=== PATIENT | female | born 1940 | race Caucasian/White ===

== ENCOUNTER 2017-06-04 12:43 | Day surgery (SDC) | payer MEDICARE, OTHER ==
[~2017-06-04] VITALS: Ht 160 cm; Wt 70.4 kg
[~2017-06-04 12:43] MED LIST: ASCO500 PO; FLAX PO; INDO25; INDO25 PO; LISHYD1012 PO; METO25ER PO; Multi-Day Vita1 EACH PO; NATURAL LUTEIN20 MG PO; TOCO400 PO; ZINC15 PO
[2017-06-04] MEDS ORDERED: ELIQUIS5 MG (13:16)
== END 2017-06-04 14:55 | disposition home or self-care (01) ==
LOC: ORSCSDS 12:43
PROVIDERS: Internal Medicine Gastroenterology
PROC: 0DBL8ZX Excision of Transverse Colon, Via Natural or Artificial Opening Endoscopic, Diagnostic (ICD-10-PCS; principal; 2017-06-04 14:15)
DX: Z12.11 Encounter for screening for malignant neoplasm of colon (principal); D12.3 Benign neoplasm of transverse colon; K64.4 Residual hemorrhoidal skin tags; Z86.010 Personal history of colon polyps; I10 Essential (primary) hypertension; E78.5 Hyperlipidemia, unspecified; I48.91 Unspecified atrial fibrillation; Z79.899 Other long term (current) drug therapy
CPT/HCPCS: 88305; J7120

== ENCOUNTER 2017-12-30 08:56 | Day surgery (SDC) | payer MEDICARE, OTHER ==
[~2017-12-30] VITALS: Ht 157.5 cm; Wt 72.6 kg
[~2017-12-30 08:56] MED LIST changes: +ELIQUIS5 MG
== END 2017-12-30 11:00 | disposition home or self-care (01) ==
LOC: ORSCSDS 08:56
PROVIDERS: Ophthalmology
PROC: 08RJ3JZ Replacement of Right Lens with Synthetic Substitute, Percutaneous Approach (ICD-10-PCS; principal; 2017-12-30 10:30)
DX: H25.11 Age-related nuclear cataract, right eye (principal); I10 Essential (primary) hypertension; E78.5 Hyperlipidemia, unspecified; Z95.0 Presence of cardiac pacemaker; I48.0 Paroxysmal atrial fibrillation; Z79.01 Long term (current) use of anticoagulants; Z79.899 Other long term (current) drug therapy
CPT/HCPCS: J2250; J3010; J3301; V2632

== ENCOUNTER → 2019-04-02 | Outpatient (CLI) | payer MEDICARE | END | disposition home or self-care (01) | LOC: LAB SHORT 11:15 → LAB 11:15 | DX: R30.0 Dysuria (principal) | CPT/HCPCS: 87077; 87086; 87186 ==

== ENCOUNTER → 2020-06-11 | Outpatient (CLI) | payer OTHER | LOC: LAB 12:06 → LAB SHORT 12:06 | DX: N39.0 Urinary tract infection, site not specified (principal) | CPT/HCPCS: 87086 ==

== ENCOUNTER 2020-11-15 10:27 | Emergency (ER) | payer OTHER ==
[~2020-11-15] VITALS: Ht 160 cm; Wt 63.0 kg
[2020-11-15] MEDS ORDERED: CEPH500 PO (10:51)
== END 2020-11-15 10:59 | disposition home or self-care (01) ==
LOC: ER 10:27
DX: L08.9 Local infection of the skin and subcutaneous tissue, unspecified (principal); Z88.2 Allergy status to sulfonamides; Z88.5 Allergy status to narcotic agent
CPT/HCPCS: 99282

== ENCOUNTER 2021-05-30 09:57 | Day surgery (SDC) | payer OTHER ==
[~2021-05-30 09:57] MED LIST changes: +CEPH500 PO; -ELIQUIS5 MG; +ELIQUIS5 MG PO
[2021-05-30] MEDS ORDERED: FOSAMAX70 MG PO (16:38)
[2021-05-30] MEDS ORDERED: GALZIN25 MG PO (16:40)
[2021-05-30] MEDS ORDERED: LUTEIN20 MG PO (16:43)
[2021-05-30] MEDS ORDERED: Alph-E-Mixed400 UNIT PO (16:44)
[2021-05-30] MEDS ORDERED: MULVITA PO (16:44)
== END 2021-05-30 16:40 | disposition home or self-care (01) ==
LOC: ATC 09:57
DX: C90.00 Multiple myeloma not having achieved remission (principal); E83.52 Hypercalcemia
CPT/HCPCS: 96361; 96365; J3489; J7030

== ENCOUNTER 2025-02-22 08:27 | Day surgery (SDC) | payer OTHER ==
[~2025-02-22] VITALS: Ht 157.5 cm; Wt 69.2 kg
[~2025-02-22 08:27] MED LIST changes: +Alph-E-Mixed400 UNIT PO; +Balanced Salt Epinephrine Irrigation Solution 500 mL IR SCH; +FOSAMAX70 MG PO; +GALZIN25 MG PO; +LUTEIN20 MG PO; +MULVITA PO; +Moxifloxacin HCL 0.5 MG/0.1 ML 0.4MLSYR LEFTEYE SCH; +Ondansetron 4 MG SoluTab MM PRN; +PHENYLEPHRINE\\TROPICAMIDE\\TETRACAINE OPHTHALMIC DILATING SOLN LEFTEYE PRN; +Povidone-Iodine 450 DROP/30 ML Solution LEFTEYE SCH; +Povidone-Iodine 450 DROP/30 ML Solution ONE; +Tetracaine HCl/Pf 0.5% Opth Soln 4 ml ONE; +Triamcinolone Inj Susp 40 MG / ML 1ML Vial INJ SCH; +Triamcinolone Inj Susp 40 MG / ML 1ML Vial ONE; +diazePAM 2 MG,diazePAM 5 MG PO SCH
--- NOTE | 2025-02-22 08:59 | NUR ---
02/22/25 0859 Krista Ley PT REPORTS ANXIETY LEVEL 5/10 PRIOR TO ADMINISTRATION OF VALIUM 7MG PO AT 0858
[2025-02-22] MEDS ORDERED: NINLARO2.3 MG PO (09:06)
[2025-02-22] MEDS ORDERED: DEXA4 PO (09:07)
[2025-02-22] MEDS ORDERED: NINLARO4 MG PO (09:07)
[2025-02-22] MEDS ORDERED: POMALYST2 MG PO (09:07)
--- NOTE | 2025-02-22 09:33 | NUR ---
02/22/25 0933 Gin Cannon 0929 BP:135/69 HR:70 O2:97% RESP:16
[2025-02-22 09:44] VITALS: BP 136/68
== END 2025-02-22 09:59 | disposition home or self-care (01) ==
LOC: ORSCSDS 08:27
PROVIDERS: Ophthalmology
PROC: 08RK3JZ Replacement of Left Lens with Synthetic Substitute, Percutaneous Approach (ICD-10-PCS; principal; 2025-02-22 10:00)
DX: H25.812 Combined forms of age-related cataract, left eye (principal); Z96.1 Presence of intraocular lens; E78.5 Hyperlipidemia, unspecified; I10 Essential (primary) hypertension; Z79.899 Other long term (current) drug therapy
CPT/HCPCS: A9270; J3301; V2632